=== PATIENT | female | born 1985 | race Caucasian/White ===

== ENCOUNTER 2018-05-18 22:39 | Outpatient (REF) | payer OTHER, SELFPAY | END 2018-05-18 22:59 | LOC: NCHCN 22:39 | PROVIDERS: Visit Provider Nurse Practitioner Family | DX: L03.116 Cellulitis of left lower limb (principal) | CPT/HCPCS: 87070; 87205 ==

== ENCOUNTER 2020-04-16 13:58 | Outpatient (REF) | payer SELFPAY ==
[2020-04-19 05:43] LABS: Patient Race White; SARS-CoV-2 RNA Undetected (Undetected); SARS-CoV-2 Specimen Source Nasal
== END 2020-04-16 14:18 ==
LOC: NCHCN 13:58
PROVIDERS: Visit Provider Family Medicine
DX: Z20.828 Contact with and (suspected) exposure to other viral communicable diseases (principal)
CPT/HCPCS: U0003

== ENCOUNTER 2020-06-03 15:46 | Outpatient (REF) | payer OTHER, SELFPAY ==
[2020-06-08 08:49] LABS: COVID-19 RT-PCR Result NEGATIVE
== END 2020-06-03 16:06 ==
LOC: NCHCN 15:46
PROVIDERS: Visit Provider Family Medicine
DX: Z11.59 Encounter for screening for other viral diseases (principal)
CPT/HCPCS: U0003

== ENCOUNTER 2022-06-13 13:35 | Outpatient (CLI) | payer OTHER, SELFPAY ==
[2022-06-13 08:33] LABS: Abs Immature Grans 0.03 10^3/uL (0.0-0.06); Absolute Basophil Count 0.09 10^3/uL (0.0-0.2); Absolute Eosinophil Count 0.49 10^3/uL (0.0-0.7); Absolute Lymphocyte Count 2.17 10^3/uL (1.2-3.4); Absolute Monocyte Count 0.65 10^3/uL (0.1-0.8); Absolute Neutrophil Count 3.97 10^3/uL (1.2-6.7); Basophils % 1.2; Eosinophils % 6.6; HCT 41.3 % (36.0-46.0); HGB 13.2 g/dL (11.2-15.7); Immature Grans % 0.4; Lymphocytes % 29.3; MCH 26.4 pg (27.0-33.0); MCV 83 fL (80-95); MPV 9.4 fL (8.0-11.0); Monocytes % 8.8; Neutrophils % 53.7; Platelet Count 329 10^3/uL (130-400); RDW 13.4 % (11.7-14.6); RDW-SD 39.9 fL
[2022-06-13 08:46] LABS: ALT 17 U/L (14-59); AST 9 U/L (15-37); Albumin 3.8 g/dL (3.4-5.0); Alkaline Phosphatase 49 U/L (46-116); Anion Gap 7.3 mmol/L (3-11); BUN 17 mg/dL (7-18); Bilirubin, Total 0.8 mg/dL (0.2-1.0); CO2 27.7 mmol/L (21.0-32.0); Calcium 8.7 mg/dL (8.5-10.1); Chloride 106 mmol/L (98-107); Estimated GFR 75.34 (mL/min/1.73m2); Glucose 101 mg/dL (74-106); Potassium 4.3 mmol/L (3.5-5.1); Sodium 141 mmol/L (136-145); Uric Acid 4.9 mg/dL (2.6-6.0)
[2022-06-13 09:21] LABS: Calculated LDL 102 mg/dL (<100); Cholesterol 156 mg/dL (<200); Ferritin 35 ng/mL (8-252); Folate 14.2 ng/mL (8.6-20.0); HDL Cholesterol 35 mg/dL (40-60); Iron 44 ug/dL (50-170); Total Iron Binding Capacity 393 ug/dL (250-450); Transferrin Sat 11 % (15-50); Triglyceride 97 mg/dL (<150); Vitamin B12 660 pg/mL (193-986)
[2022-06-13 09:45] LABS: Vitamin D 25 Total 30.8 ng/mL (30-100)
[2022-06-16 09:25] LABS: Insulin 13.3 uIU/mL (<29.0)
[2022-06-16 12:06] LABS: Thiamine (Vitamin B1), WB 138 nmol/L (70-180)
== END 2022-06-13 13:36 | disposition home or self-care (01) ==
LOC: LBO 13:37
PROVIDERS: Visit Provider Family Medicine
DX: E66.01 Morbid (severe) obesity due to excess calories (principal); Z68.43 Body mass index [BMI] 50.0-59.9, adult
CPT/HCPCS: 36415; 80053; 80061; 82306; 82607; 82728; 82746; 83525; 83540; 83550; 84425; 84550; 85025

== ENCOUNTER 2023-03-29 17:23 | Outpatient (REF) | payer OTHER, SELFPAY ==
[2023-03-29 20:41] LABS: Source Nasal/Nares
[2023-03-29 21:56] LABS: COVID-19 PCR Negative (Negative)
== END 2023-03-29 17:24 | disposition home or self-care (01) ==
LOC: LBN 17:23
PROVIDERS: Visit Provider Physician Assistant Medical
DX: R53.81 Other malaise (principal); Z20.822 Contact with and (suspected) exposure to COVID-19
CPT/HCPCS: 87635

== ENCOUNTER 2023-06-28 12:58 | Emergency (ER) | payer OTHER, SELFPAY ==
[2023-06-28 13:00] VITALS: BP 165/92; PULSE 77; RESP 14; TEMP 36.6; O2SAT 100
[2023-06-28 13:03] VITALS: BP 165/92; PULSE 72; RESP 16; TEMP 36.9; O2SAT 100
--- NOTE | 2023-06-28 13:15 | RT.EKG_ITS ---
APPROVED REPORT Exam: Resting ECG Reason for Exam: epigastric pain Patient Location: E HR:58 bpm ECG Measurements Heart Rate 58 AXIS MN 157 P 13 QRSd 93 QRS 52 QT 430 T 28 QTc 424 Conclusion Sinus bradycardia...rate< 60
[2023-06-28 13:22] LABS: Abs Immature Grans 0.02 10^3/uL (0.0-0.06); Absolute Basophil Count 0.09 10^3/uL (0.0-0.2); Absolute Eosinophil Count 0.54 10^3/uL (0.0-0.7); Absolute Monocyte Count 0.69 10^3/uL (0.1-0.8); Absolute Neutrophil Count 3.81 10^3/uL (1.2-6.7); Basophils % 1.3; Eosinophils % 7.8; HCT 35.2 % (36.0-46.0); HGB 10.3 g/dL (11.2-15.7); Immature Grans % 0.3; Lymphocytes % 25.9; MCH 19.2 pg (27.0-33.0); MCHC 29.3 % (32.0-36.0); MCV 66 fL (80-95); MPV 9.5 fL (8.0-11.0); Monocytes % 9.9; Neutrophils % 54.8; Platelet Count 480 10^3/uL (130-400); RBC 5.36 10^6/uL (3.93-5.22); RDW 18.6 % (11.7-14.6); RDW-SD 42.1 fL; WBC 6.95 10^3/uL (4.4-10.8)
--- NOTE | 2023-06-28 13:23 | DI.CT_ITS ---
Exam(s) CT ABDOMEN PELVIS W EXAM: CT ABDOMEN PELVIS W CLINICAL HISTORY: epigastric pain, recent gastric bypass. TECHNIQUE: Imaging Protocol: Axial computed tomography images with coronal and sagittal reformatted images were created and reviewed CONTRAST MATERIAL: Intravenous: Omnipaque 350 Contrast volume:100 ml Oral: yes COMPARISON: No exams were available for comparison FINDINGS: ABDOMEN and PELVIS: Lung Bases: No acute findings. Liver: Enlarged. Prior steatosis. No measurable mass. Gallbladder and biliary tract: No radiodense calculus or dilation. Pancreas: Normal density. No abnormal calcifications or inflammatory process. No evidence of mass. Spleen: Mildly enlarged. Kidneys: Normal size, contour and axis. No radiodense stones. No obstructive uropathy. No suspicious masses seen. Adrenal glands: No masses seen. Vasculature: Abdominal aorta non-dilated. Soft tissues: Unremarkable. Bladder: No gross wall thickening. No calculi.No focal mass. Bowel: Suture material at stomach. Stomach nondistended. No abnormality identified. Administered c ontrast is within mid to distal loops of small bowel none. There is no evidence of obstruction. No bowel wall thickening. Appendix normal. Peritoneal cavity: No ascites. No focal collection or mesenteric inflammatory response. Bones: Degenerative disc changes of the lower thoracic spine as well as at L4-5 and L5-S1. Reproductive organs: An IUD is seen which appears to be located somewhat inferiorly in the lower uter ine segment and is eccentric toward the left. Ovaries appear normal. Lymph nodes: Unremarkable. IMPRESSION:: No acute abnormality in the abdomen and pelvis. Stomach and bowel are unremarkable. The IUD appears to be positioned somewhat low in the uterus as well as eccentric toward the right. RADIATION DOSE DELIVERED: Total DLP DATA REPOSITORY: All CT scans at this facility are submitted to the National Radiology Data Registry (NRDR) Dose Index Registry (DIR) with the [employer] (A[employer]). RADIATION OPTIMIZATION: All CT scans at this facility use at least one of these dose optimization te chniques: automated exposure control; mA and/or kV adjustment per patient size (includes targeted exa ms where dose is matched to clinical indication); or iterative reconstruction.
--- NOTE | 2023-06-28 13:32 | W.ED.GENAD ---
Discharge Plan Disposition Patient Disposition: Home Condition: Stable Discharge Details Clinical Impression: Abdominal pain, Nausea ED Provider: Boyd Blancas Home Meds and New Rx's Prescriptions: New prochlorperazine maleate [Compazine] 10 mg tablet 10 mg PO Q6H PRNQty: 10 0RF omeprazole 40 mg capsule,delayed release(DR/EC) 40 mg PO BID Qty: 30 0RF Continued Mirena 1 EACH intrauterine device 1 ea Intrauterine ONCE Qty: 1 rizatriptan [Maxalt] 10 MG tablet 10 mg PO PRN venlafaxine [Effexor XR] 150 MG capsule,extended release 24hr 150 mg PO DAILY Patient Comments: 75 mg as needed levothyroxine 50 MCG tablet 50 mcg PO DAILY Patient Comments: upped tp 75 mcg albuterol sulfate [ProAir HFA] 8.5 GM HFA aerosol inhaler 8.5 gm Inhalation PRN fexofenadine-pseudoephedrine [Marilyn-D 24 Hour] 1 EACH tablet extended release 24 hr 1 tab-cap PO DAILY tylenol 500 mg PRN ursodiol 250 mg tablet 250 mg PO ONCE lamotrigine [Lamictal XR] 25 mg tablet extended release 24hr 25 mg PO DAILY montelukast 10 mg tablet 10 mg PO DAILY aripiprazole [Abilify] 5 mg tablet 5 mg PO DAILY Discharge Instructions Instructions: Acute Nausea and Vomiting (ED), Abdominal Pain (ED) Additional Instructions: You were seen in the emergency department for your epigastric pain for 6 days, your labs are reassuring, you are followed by hematology for your known anemia, your CT scan is negative for any acute emergent abdominal pathology. You likely have gastritis and need to be started on either Pepcid or a proton pump inhibitor like pantoprazole. He requested to leave at 1700 hrs. prior to [facility] bariatric surgery consult I think this is a reasonable request. Please follow-up with your bariatric surgeon and your primary care provider, I will contact you if there are any interventions at [facility] wishes me to perform for you. Please return to the emergency department immediately for any increasing abdominal pain especially with fever, intractable nausea or vomiting, persistent dark stools without Pepto-Bismol use, bloody diarrhea, chest pain with shortness of breath, dizziness or sweating. Referrals: [facility] [Outside] (Bariatric Surgey Dept.) Discharge Data Discharge Date/Time-TO BE ENTERED AT DEPARTURE: 06/28/23 17:10 Medical Decision Making 37-year-old female presenting with epigastric pain, history of gastric bypass Presents with 6 days of symptoms, will order CT abdomen and pelvis with p.o. and IV contrast for further evaluation Diagnostic labs are reassuring, specifically no leukocytosis, EKG was ordered given age and comorbidities, does not show evidence of QTc prolongation or ST elevation 50 mcg of fentanyl, 1 L of NS, Zofran pt is pending ct scan abd/pelvis at this time will transition to DANABRE pending ct and dispo HPI General Date/Time Provider Initiated Documentation: 06/28/23 13:03. HPI Narrative: This 37-year-old female presents with epigastric abdominal pain for the past 6 days. Status post gastric bypass/Magda-en-Y approximately 4 months ago at [facility]. States pain is exacerbated with eating. Denies radiation of pain. Denies any fever or chills. Has had nausea with several episodes of vomiting. Denies any blood in vomitus. Denies any fever or chills. Denies any chance of . Describes the pain as a sharp and intermittent cramping sensation. Related Data Home Medications Medication Instructions Recorded Confirmed Tylenol 500 mg PRN 08/26/16 albuterol sulfate 90 mcg/actuation 8.5 gm inhalation PRN 08/26/16 06/28/23 aerosol inhaler (ProAir HFA) fexofenadine-pseudoephedrine ER 1 tab-cap PO DAILY 08/26/16 06/28/23 180 mg-240 mg tablet,ext.release 24 hr (Marilyn-D 24 Hour) levonorgestrel 21 mcg/24 hours (8 1 ea intrauterine ONCE #1 implant 08/26/16 06/28/23 yrs) 52 mg intrauterine device (Mirena) levothyroxine 50 mcg tablet 50 mcg PO DAILY 08/26/16 06/28/23 rizatriptan 10 mg tablet (Maxalt) 10 mg PO PRN 08/26/16 06/28/23 venlafaxine 150 mg 150 mg PO DAILY 08/26/16 06/28/23 capsule,extended release 24 hr (Effexor XR) aripiprazole 5 mg tablet (Abilify) 5 mg PO DAILY 06/28/23 06/28/23 lamotrigine 25 mg tablet,extended 25 mg PO DAILY 06/28/23 06/28/23 release 24 hr (Lamictal XR) montelukast 10 mg tablet 10 mg PO DAILY 06/28/23 06/28/23 omeprazole 40 mg capsule,delayed 40 mg PO BID gastritis #30 caps 06/28/23 release prochlorperazine maleate 10 mg 10 mg PO Q6H PRN #10 tabs 06/28/23 tablet (Compazine) ursodiol 250 mg tablet 250 mg PO ONCE 06/28/23 06/28/23 Previous Rx's Medication Instructions Recorded omeprazole 40 mg capsule,delayed 40 mg PO BID gastritis #30 caps 06/28/23 release prochlorperazine maleate 10 mg 10 mg PO Q6H PRN #10 tabs 06/28/23 tablet (Compazine) Allergies Allergy/AdvReac Type Severity Reaction Status Date / Time peach Allergy Severe anaphalacti Unverified 06/28/23 13:23 c latex Allergy rash Unverified 06/28/23 13:23 sumatriptan [From Imitrex] Allergy body Unverified 06/28/23 13:23 aches/muscle spasm sumatriptan succinate Allergy body Unverified 06/28/23 13:23 [From Imitrex] aches/muscle spasm General Stated Complaint: Abd Prob SHITAL: 3 PFSH All Active Problems (Updated 06/28/23 @ 15:43 by SOHEILA Weiner) Nausea (Acute) Abdominal pain (Acute) Medical History (Updated 06/28/23 @ 15:43 by SOHEILA Weiner) Asthma Tobacco use occassional smoker - during stress. BMI 45.0-49.9, adult Hypothyroid Migraine IUD (intrauterine device) in place Marijuana use twice daily. Depression with anxiety Surgical History (System 06/24/20 @ 15:46 by Xi Lanier) Tonsillectomy and adenoidectomy Tooth extraction Family History (System 06/24/20 @ 15:46 by Xi Lanier) Mother Essential hypertension Grandfather Essential hypertension Heart disease Hyperlipidemia Social History (System 06/24/20 @ 15:46 by Xi Javier Smoking/Tobacco Use Status: Never Smoking risk assessment performed?: Yes Alcohol Intake: never Drug use: Daily Substance use type: marijuana Housing: house Do you feel safe at home: Yes Do you feel safe in your relationship?: Yes Course Vital Signs Vital signs: Vital Signs Temperature 36.6 C 06/28/23 13:00 Pulse 77 06/28/23 13:00 Respiratory Rate 14 06/28/23 13:00 Blood Pressure 165/92 H 06/28/23 13:00 Pulse Oximetry 100 06/28/23 13:00 Temperature 36.9 C 06/28/23 13:03 Temperature Source Oral 06/28/23 13:00 Pulse 72 06/28/23 13:03 Respiratory Rate 16 06/28/23 13:03 Respiratory Effort Normal 06/28/23 13:03 Blood Pressure 165/92 H 06/28/23 13:03 Blood Pressure Position Sitting 06/28/23 13:03 Pulse Oximetry 100 06/28/23 13:03 Oxygen Delivery Method Room Air 06/28/23 13:03 Oxygen Flow Rate 0 06/28/23 13:00 Pain Level 6 06/28/23 13:03
[2023-06-28 13:38] LABS: ALT 19 U/L (14-59); AST 14 U/L (15-37); Albumin 3.8 g/dL (3.4-5.0); Alkaline Phosphatase 62 U/L (46-116); BUN 13 mg/dL (7-18); Bilirubin, Total 0.8 mg/dL (0.2-1.0); CREATININE 0.7 mg/dL (0.55-1.02); Calcium 9.1 mg/dL (8.5-10.1); Chloride 103 mmol/L (98-107); Estimated GFR 114.88 (mL/min/1.73m2); Glucose 90 mg/dL (74-106); Lipase 38 U/L (16-77); Potassium 3.8 mmol/L (3.5-5.1); Sodium 138 mmol/L (136-145); Total Protein 7.3 g/dL (6.4-8.2)
[2023-06-28 13:39] LABS: Bilirubin Negative (Negative); Blood Negative (Negative); Clarity Clear (Clear); Glucose Negative (Negative); Ketones Negative (Negative); Leukocyte Esterase Negative (Negative); Nitrite Negative (Negative); Specific Gravity >= 1.030 (1.005-1.025); Urobilinogen 0.2 mg/dL (Up to 0.2)
[2023-06-28] MEDS: Omnipaque 350 MG/ML 50 ML BTL PO (13:44)
[2023-06-28] MEDS: Breeza Beverage 473 ML BTL 946 ML PO (13:45)
[2023-06-28] MEDS: fentaNYL 100 MCG/2 ML VIAL 50 MCG IVP (13:46)
[2023-06-28] MEDS: Ondansetron 4 MG/2 ML VIAL IVP (13:46)
[2023-06-28 13:48] LABS: Anisocytosis 1+; Diff Comment RBC Morph Reviewed
[2023-06-28 13:49] LABS: Hypochromasia 1+; Microcytosis 2+; Poikilocytes 1+; Polychromasia Present
[2023-06-28 13:53] LABS: Troponin I < 50 ng/L (<or=60)
[2023-06-28] MEDS: Prochlorperazine 10 MG/2 ML VIAL 5 MG IVP (14:48)
[2023-06-28] MEDS: Normal Saline - Diluent 50 ML VIAL IJ (15:26)
[2023-06-28] MEDS: Omnipaque 350 MG/ML 100 ML BTL IJ (15:27)
[2023-06-28] MEDS: Mylanta Suspension 30 ML CUP PO (15:55)
[2023-06-28] MEDS: Pantoprazole 40 MG VIAL IVP (15:56)
[2023-06-28] MEDS: Famotidine 20 MG/2 ML VIAL IVP (15:56)
[2023-06-28 17:00] VITALS: BP 130/72; PULSE 58; RESP 16; TEMP 37; O2SAT 99
--- NOTE | 2023-06-28 17:00 | W.EDPROG ---
Date of service: 06/28/23 Time of Service: 18:00 Medical Decision Making 37-year-old female signed out to me by outgoing provider with work-up complete, 6 days of abdominal pain with history of Magda-en-Y gastric bypass months ago. Followed by [facility] bariatric surgery. Denies severe chest pain or shortness of breath or dizziness, troponin negative and EKG benign, CT abdomen pelvis shows no acute abnormalities. She has an hemoglobin of 10.3 but has been followed by hematology and is starting iron infusion shortly, endorses a mild black stool but also took Pepto-Bismol. Plan to start the patient on a PPI outpatient after [facility] bariatric surgery consult, the patient stated that 1700 that she needed to leave and without actionable findings on laboratory work-up or CT scan I think this is a reasonable request and I will continue with consult after she is discharged and sent any necessary prescriptions or recommendations or contact the patient for follow-up should they recommend. 1745: [facility] returned phonecall- recommend 40mg BID omeprazole- reviewed CT, unconcerned for findings. Called the patient to relay that an Rx was sent, that was discussed as well prior to discharge. She can follow-up with [facility] Bariatrics. Medical Records Medical records reviewed: Yes I reviewed the patient's medical records. Imaging Data Radiologic Study: Imaging: CT Scan Radiologist's impression: Exam(s) CT ABDOMEN PELVIS W EXAM: CT ABDOMEN PELVIS W CLINICAL HISTORY: epigastric pain, recent gastric bypass. TECHNIQUE: Imaging Protocol: Axial computed tomography images with coronal and sagittal reformatted images were created and reviewed CONTRAST MATERIAL: Intravenous: Omnipaque 350 Contrast volume:100 ml Oral: yes COMPARISON: No exams were available for comparison FINDINGS: ABDOMEN and PELVIS: Lung Bases: No acute findings. Liver: Enlarged. Prior steatosis. No measurable mass. Gallbladder and biliary tract: No radiodense calculus or dilation. Pancreas: Normal density. No abnormal calcifications or inflammatory process. No evidence of mass. Spleen: Mildly enlarged. Kidneys: Normal size, contour and axis. No radiodense stones. No obstructive uropathy. No suspicious masses seen. Adrenal glands: No masses seen. Vasculature: Abdominal aorta non-dilated. Soft tissues: Unremarkable. Bladder: No gross wall thickening. No calculi.No focal mass. Bowel: Suture material at stomach. Stomach nondistended. No abnormality identified. Administered contrast is within mid to distal loops of small bowel none. There is no evidence of obstruction. No bowel wall thickening. Appendix normal. Peritoneal cavity: No ascites. No focal collection or mesenteric inflammatory response. Bones: Degenerative disc changes of the lower thoracic spine as well as at L4-5 and L5-S1. Reproductive organs: An IUD is seen which appears to be located somewhat inferiorly in the lower uterine segment and is eccentric toward the left. Ovaries appear normal. Lymph nodes: Unremarkable. IMPRESSION:: No acute abnormality in the abdomen and pelvis. Stomach and bowel are unremarkable. The IUD appears to be positioned somewhat low in the uterus as well as eccentric toward the right. Lab Data Labs: Laboratory Tests Range/Units 06/28/23 06/28/23 13:12 13:28 WBC (4.4-10.8) 10^3/uL 6.95 RBC (3.93-5.22) 10^6/uL 5.36 H Hgb (11.2-15.7) g/dL 10.3 L Hct (36.0-46.0) % 35.2 L MCV (80-95) fL 66 L MCH (27.0-33.0) pg 19.2 L MCHC (32.0-36.0) % 29.3 L RDW (11.7-14.6) % 18.6 H Plt Count (130-400) 10^3/uL 480 H MPV (8.0-11.0) fL 9.5 Immature Gran % 0.3 Neutrophils % 54.8 Lymphocytes % 25.9 Monocytes % 9.9 Eosinophils % 7.8 Basophils % 1.3 Nucleated RBC % (0.0-0.3) % 0.0 Absolute Neutrophils (1.2-6.7) 10^3/uL 3.81 Absolute Lymphocytes (1.2-3.4) 10^3/uL 1.80 Absolute Monocytes (0.1-0.8) 10^3/uL 0.69 Absolute Eosinophils (0.0-0.7) 10^3/uL 0.54 Absolute Basophils (0.0-0.2) 10^3/uL 0.09 RBC Morphology See Below Polychromasia Present Hypochromasia 1+ Poikilocytosis 1+ Anisocytosis 1+ Microcytosis 2+ Sodium (136-145) mmol/L 138 Potassium (3.5-5.1) mmol/L 3.8 Chloride (98-107) mmol/L 103 Carbon Dioxide (21.0-32.0) mmol/L 28.0 Anion Gap (3-11) mmol/L 7.0 BUN (7-18) mg/dL 13 Creatinine (0.55-1.02) mg/dL 0.7 Est GFR (CKD-EPI 2020) (mL/min/1.73m2) 114.88 Glucose (74-106) mg/dL 90 Calcium (8.5-10.1) mg/dL 9.1 Total Bilirubin (0.2-1.0) mg/dL 0.8 AST (15-37) U/L 14 L ALT (14-59) U/L 19 Alkaline Phosphatase (46-116) U/L 62 Troponin I (<or=60) ng/L < 50 Total Protein (6.4-8.2) g/dL 7.3 Albumin (3.4-5.0) g/dL 3.8 Lipase (16-77) U/L 38 Urine Color (Yellow) Yellow Urine Clarity (Clear) Clear Urine pH (5-8) 6.0 Ur Specific [place] (1.005-1.025) >= 1.030 H Urine Protein (Negative) mg/dL Negative Urine Ketones (Negative) mg/dL Negative Urine Blood (Negative) Negative Urine Nitrite (Negative) Negative Urine Bilirubin (Negative) Negative Urine Urobilinogen (Up to 0.2) mg/dL 0.2 Ur Leukocyte Esterase (Negative) Negative Urine Glucose (Negative) mg/dL Negative Discharge Plan Disposition Patient Disposition: Home Condition: Stable Discharge Details Clinical Impression: Abdominal pain, Nausea Primary Care Provider: Unknown,Unknown ED Provider: Boyd Blancas Home Meds and New Rx's Prescriptions: New prochlorperazine maleate [Compazine] 10 mg tablet 10 mg PO Q6H PRNQty: 10 0RF omeprazole 40 mg capsule,delayed release(DR/EC) 40 mg PO BID Qty: 30 0RF Continued Mirena 1 EACH intrauterine device 1 ea Intrauterine ONCE Qty: 1 rizatriptan [Maxalt] 10 MG tablet 10 mg PO PRN venlafaxine [Effexor XR] 150 MG capsule,extended release 24hr 150 mg PO DAILY Patient Comments: 75 mg as needed levothyroxine 50 MCG tablet 50 mcg PO DAILY Patient Comments: upped tp 75 mcg albuterol sulfate [ProAir HFA] 8.5 GM HFA aerosol inhaler 8.5 gm Inhalation PRN fexofenadine-pseudoephedrine [Marilyn-D 24 Hour] 1 EACH tablet extended release 24 hr 1 tab-cap PO DAILY tylenol 500 mg PRN ursodiol 250 mg tablet 250 mg PO ONCE lamotrigine [Lamictal XR] 25 mg tablet extended release 24hr 25 mg PO DAILY montelukast 10 mg tablet 10 mg PO DAILY aripiprazole [Abilify] 5 mg tablet 5 mg PO DAILY Discharge Instructions Instructions: Acute Nausea and Vomiting (ED), Abdominal Pain (ED) Additional Instructions: You were seen in the emergency department for your epigastric pain for 6 days, your labs are reassuring, you are followed by hematology for your known anemia, your CT scan is negative for any acute emergent abdominal pathology. You likely have gastritis and need to be started on either Pepcid or a proton pump inhibitor like pantoprazole. He requested to leave at 1700 hrs. prior to [facility] bariatric surgery consult I think this is a reasonable request. Please follow-up with your bariatric surgeon and your primary care provider, I will contact you if there are any interventions at [facility] wishes me to perform for you. Please return to the emergency department immediately for any increasing abdominal pain especially with fever, intractable nausea or vomiting, persistent dark stools without Pepto-Bismol use, bloody diarrhea, chest pain with shortness of breath, dizziness or sweating. Referrals: [facility] [Outside] (Bariatric Surgey Dept.) Discharge Data Discharge Date/Time-TO BE ENTERED AT DEPARTURE: 06/28/23 17:10
--- NOTE | 2023-07-01 14:37 | NUR.NOTE ---
Patient called stating that the prescriptions did not go to the pharmacy. She has called 3 times prior. Would we call them in? I called the prescriptions in to [facility] [place] per Dr. Ferris. Nursing Note:
== END 2023-06-28 17:10 | disposition home or self-care (01) ==
PROVIDERS: Physician Assistant; Emergency Provider Physician Assistant
DX: R10.13 Epigastric pain (principal); R11.0 Nausea; Z97.5 Presence of (intrauterine) contraceptive device; Z98.84 Bariatric surgery status
CPT/HCPCS: 00123; 36415; 80053; 83690; 93005; 96374; 96375; 99285; 74177; 81003; 84484; 85025; 93010; 99284; J0780; J2405; J3010; J3490; Q9967

== ENCOUNTER 2023-07-28 01:38 | Outpatient (RCR) | payer OTHER, SELFPAY ==
[2023-07-07] MEDS: IRON SUCROSE COMPLEX 200 MG in Normal Saline 100 ML 440 MG IVPB (13:07)
[2023-07-07] MEDS: Normal Saline Flush 10 ML SYR IVP (13:07)
[2023-07-14] MEDS: Normal Saline Flush 10 ML SYR IVP (12:25)
[2023-07-14] MEDS: IRON SUCROSE COMPLEX 200 MG in Normal Saline 100 ML 440 MG IVPB (12:25)
[2023-07-21] MEDS: IRON SUCROSE COMPLEX 200 MG in Normal Saline 100 ML 440 MG IVPB (09:09)
[2023-07-21] MEDS: Normal Saline Flush 10 ML SYR IVP (09:09)
[2023-07-28] MEDS: IRON SUCROSE COMPLEX 200 MG in Normal Saline 100 ML 440 MG IVPB (12:04)
[2023-07-28] MEDS: Normal Saline Flush 10 ML SYR IVP (12:04)
== END 2023-08-06 23:59 | disposition home or self-care (01) ==
LOC: INF 01:38
PROVIDERS: Visit Provider Nurse Practitioner Acute Care
DX: D50.9 Iron deficiency anemia, unspecified (principal)
CPT/HCPCS: 96365; J1756

== ENCOUNTER 2023-10-06 10:29 | Outpatient (CLI) | payer OTHER, SELFPAY ==
[2023-10-06 08:57] LABS: Abs Immature Grans 0.02 10^3/uL (0.0-0.06); Absolute Basophil Count 0.11 10^3/uL (0.0-0.2); Absolute Eosinophil Count 1.02 10^3/uL (0.0-0.7); Absolute Lymphocyte Count 1.78 10^3/uL (1.2-3.4); Absolute Monocyte Count 0.58 10^3/uL (0.1-0.8); Absolute Neutrophil Count 3.36 10^3/uL (1.2-6.7); Basophils % 1.6; Eosinophils % 14.8; HCT 42.5 % (36.0-46.0); HGB 13.8 g/dL (11.2-15.7); Immature Grans % 0.3; Lymphocytes % 25.9; MCH 24.8 pg (27.0-33.0); MCHC 32.5 % (32.0-36.0); MCV 76 fL (80-95); MPV 9.8 fL (8.0-11.0); Monocytes % 8.4; Platelet Count 372 10^3/uL (130-400); RBC 5.56 10^6/uL (3.93-5.22); RDW 17.7 % (11.7-14.6); RDW-SD 49.3 fL; WBC 6.87 10^3/uL (4.4-10.8)
[2023-10-06 09:25] LABS: Ferritin 21 ng/mL (8-252)
== END 2023-10-06 10:30 | disposition home or self-care (01) ==
LOC: LBO 10:30
PROVIDERS: Visit Provider Internal Medicine
DX: D64.9 Anemia, unspecified (principal)
CPT/HCPCS: 36415; 82728; 85025

== ENCOUNTER 2023-11-03 01:12 | Outpatient (RCR) | payer OTHER, SELFPAY ==
[2023-11-03] MEDS: Normal Saline Flush 10 ML SYR IVP (11:59)
[2023-11-03] MEDS: IRON SUCROSE COMPLEX 200 MG in Normal Saline 100 ML 440 MG IVPB (11:59)
== END 2023-11-05 23:59 | disposition home or self-care (01) ==
LOC: INF 01:12
PROVIDERS: Visit Provider Family Medicine
DX: D50.9 Iron deficiency anemia, unspecified (principal)
CPT/HCPCS: 96365; J1756

== ENCOUNTER 2023-11-17 00:40 | Outpatient (RCR) | payer OTHER, SELFPAY ==
[2023-11-10] MEDS: IRON SUCROSE COMPLEX 200 MG in Normal Saline 100 ML 440 MG IVPB (10:59)
[2023-11-10] MEDS: Normal Saline Flush 10 ML SYR IVP (10:59)
[2023-11-17] MEDS: Normal Saline Flush 10 ML SYR IVP (11:05)
[2023-11-17] MEDS: IRON SUCROSE COMPLEX 200 MG in Normal Saline 100 ML 440 MG IVPB (11:28)
== END 2023-12-05 23:59 | disposition home or self-care (01) ==
LOC: INF 00:40
PROVIDERS: Visit Provider Family Medicine
DX: D50.9 Iron deficiency anemia, unspecified (principal)
CPT/HCPCS: 96365; J1756

== ENCOUNTER 2024-01-26 13:22 | Outpatient (CLI) | payer OTHER, SELFPAY ==
[2024-01-26 13:22] LABS: Abs Immature Grans 0.03 10^3/uL (0.0-0.06); Absolute Basophil Count 0.09 10^3/uL (0.0-0.2); Absolute Eosinophil Count 1.11 10^3/uL (0.0-0.7); Absolute Lymphocyte Count 2.02 10^3/uL (1.2-3.4); Absolute Monocyte Count 0.63 10^3/uL (0.1-0.8); Absolute Neutrophil Count 5.03 10^3/uL (1.2-6.7); Eosinophils % 12.5 %; HCT 45.6 % (36.0-46.0); HGB 14.7 g/dL (11.2-15.7); Immature Grans % 0.3 %; Lymphocytes % 22.7 %; MCH 28.1 pg (27.0-33.0); MCHC 32.2 % (32.0-36.0); MCV 87 fL (80-95); MPV 9.4 fL (8.0-11.0); Monocytes % 7.1 %; Neutrophils % 56.4 %; Platelet Count 340 10^3/uL (130-400); RBC 5.24 10^6/uL (3.93-5.22); RDW 14.7 % (11.7-14.6); RDW-SD 47.3 fL; WBC 8.91 10^3/uL (4.4-10.8)
[2024-01-26 14:03] LABS: Anion Gap 6.4 mmol/L (3-11); BUN 11 mg/dL (7-18); CO2 27.6 mmol/L (21.0-32.0); CREATININE 0.9 mg/dL (0.55-1.02); Calcium 8.9 mg/dL (8.5-10.1); Chloride 107 mmol/L (98-107); Estimated GFR 84.44 (mL/min/1.73m2); Ferritin 100 ng/mL (8-252); Glucose 104 mg/dL (74-106); Potassium 4.1 mmol/L (3.5-5.1); Sodium 141 mmol/L (136-145); TSH (W/Ref FT4) 2.93 uIU/mL (0.36-3.74)
== END 2024-01-26 13:23 | disposition home or self-care (01) ==
LOC: LBO 13:22
PROVIDERS: Visit Provider Nurse Practitioner Adult Health
DX: D50.9 Iron deficiency anemia, unspecified (principal); E66.01 Morbid (severe) obesity due to excess calories; Z68.41 Body mass index [BMI] 40.0-44.9, adult
CPT/HCPCS: 36415; 80048; 82728; 84443; 85025

== ENCOUNTER 2024-05-23 16:52 | Outpatient (CLI) | payer OTHER, SELFPAY ==
[2024-05-23 12:20] LABS: Abs Immature Grans 0.02 10^3/uL (0.0-0.06); Absolute Basophil Count 0.08 10^3/uL (0.0-0.2); Absolute Eosinophil Count 0.49 10^3/uL (0.0-0.7); Absolute Lymphocyte Count 1.47 10^3/uL (1.2-3.4); Absolute Monocyte Count 0.49 10^3/uL (0.1-0.8); Absolute Neutrophil Count 3.84 10^3/uL (1.2-6.7); Basophils % 1.3 %; Eosinophils % 7.7 %; HCT 44.3 % (36.0-46.0); HGB 14.4 g/dL (11.2-15.7); Immature Grans % 0.3 %; MCH 28.6 pg (27.0-33.0); MCHC 32.5 % (32.0-36.0); MCV 88 fL (80-95); Monocytes % 7.7 %; Platelet Count 304 10^3/uL (130-400); RBC 5.04 10^6/uL (3.93-5.22); RDW 13.4 % (11.7-14.6); RDW-SD 43.4 fL; WBC 6.39 10^3/uL (4.4-10.8)
[2024-05-23 12:56] LABS: Ferritin 81 ng/mL (8-252)
== END 2024-05-23 16:53 | disposition home or self-care (01) ==
LOC: LBO 16:53
PROVIDERS: Visit Provider Nurse Practitioner Adult Health
DX: D50.9 Iron deficiency anemia, unspecified (principal)
CPT/HCPCS: 36415; 82728; 85025